=== PATIENT | male | born 1980 | race Caucasian/White ===

== ENCOUNTER 2017-02-16 09:16 | Emergency (ER) | payer BC, OTHER ==
--- NOTE | 2017-02-16 09:27 | UC ---
FLU HPI - History of Current Complaint Stated Complaint: FLU COMPLAINT Time Seen by Provider: 02/16/17 09:27 - Allergy/Home Medications Allergies/Adverse Reactions: Allergies Allergy/AdvReac Type Severity Reaction Status Date / Time Amoxicillin [From Augmentin] Allergy Intermediate GI Upset Verified 05/14/16 10: 18 Clavulanic Acid Allergy Intermediate GI Upset Verified 05/14/16 10:18 [From Augmentin] Penicillins Allergy Intermediate Hives Verified 05/14/16 10:18 PMH/Surg Hx/FS Hx/Imm Hx - Surgical History Surgical History: Yes Surgery Procedure, Year, and Place: HERNIA REPAIR, TONSILECTOMY - Social History Alcohol Use: Occasionally Alcohol Amount: 6 beers/week Substance Use Type: None Substance Use Comment - Amount & Last Used: Occ Smoking Status (MU): Never Smoked Tobacco Amount Used/How Often: 1 can/week - Immunization History Most Recent Influenza Vaccination: unknown Most Recent Tetanus Shot: unknown Most Recent Pneumonia Vaccination: unknown Discharge - Discharge Plan Condition: Stable Disposition: HOME Referrals: Bharat Millan NP [Primary Care Provider] -
[2017-02-16] MEDS ORDERED: Albuterol 2.5 MG/3 ML NEB.SOL* (0.083%) INH ONE (09:47)
[2017-02-16] MEDS ORDERED: Acetaminophen TAB* 325 MG PO ONE (09:54)
--- NOTE | 2017-02-16 10:01 | UC ---
FLU HPI - HPI Summary HPI Summary: Patient presents with four day onset complaints of generalized fatigue, malaise , fever, headache, with cough, chest congestion and chest pressure. He denies any sputum production. He also reports previous episodes of diarrhea. He denies abdominal pain, nausea, or vomiting. He reports ill contacts at work. - History of Current Complaint Chief Complaint: UCGeneralIllness Stated Complaint: FLU COMPLAINT Time Seen by Provider: 02/16/17 09:27 Hx Obtained From: Patient Onset/Duration: Gradual Onset, Lasting Days Associated Signs & Symptoms: Positive: Myalgia, Cough, Headache - Risk Factors Influenza Risk Factors: Negative - Allergy/Home Medications Allergies/Adverse Reactions: Allergies Allergy/AdvReac Type Severity Reaction Status Date / Time Amoxicillin [From Augmentin] Allergy Intermediate GI Upset Verified 02/16/17 09: 27 Clavulanic Acid Allergy Intermediate GI Upset Verified 02/16/17 09:27 [From Augmentin] Penicillins Allergy Intermediate Hives Verified 02/16/17 09:27 Home Medications: Home Medications Acetaminophen TAB* [Tylenol TAB*] 650 mg PO Q4H PRN 02/16/17 [History Confirmed 02/16/17] PMH/Surg Hx/FS Hx/Imm Hx Previously Healthy: Yes - Surgical History Surgical History: Yes Surgery Procedure, Year, and Place: HERNIA REPAIR, TONSILECTOMY - Social History Occupation: Employed Full-time Lives: Alone Alcohol Use: Rare Alcohol Amount: 6 beers/week Substance Use Type: None Substance Use Comment - Amount & Last Used: Occ Smoking Status (MU): Light Every Day Tobacco Smoker Amount Used/How Often: 1 can/week - Immunization History Most Recent Influenza Vaccination: unknown Most Recent Tetanus Shot: unknown Most Recent Pneumonia Vaccination: unknown Review of Systems Constitutional: Fever, Fatigue Skin: Negative Eyes: Negative ENT: Negative Respiratory: Cough Cardiovascular: Chest Pain Gastrointestinal: Negative Genitourinary: Negative Motor: Negative Neurovascular: Negative Musculoskeletal: Negative Neurological: Negative Psychological: Negative Is Patient Immunocompromised?: No All Other Systems Reviewed And Are Negative: Yes Physical Exam Triage Information Reviewed: Yes Appearance: Ill-Appearing Vital Signs: Initial Vital Signs Temp 101.1 F 02/16/17 09:31 Pulse 104 02/16/17 09:31 Resp 20 02/16/17 09:31 BP 115/78 02/16/17 09:31 Pulse Ox 94 02/16/17 09:31 Vital Signs Reviewed: Yes Eye Exam: Normal ENT: Positive: Pharyngeal erythema Dental Exam: Normal Neck exam: Normal Neck: Positive: 1 Respiratory: Positive: Decreased breath sounds Cardiovascular: Positive: RRR, No Murmur, Tachycardia Abdominal Exam: Normal Skin Exam: Normal Flu Course/Dx - Course Course Of Treatment: Patient presetns with complaints of fever, headache, and chest pain. Today we obtained a CXR that was negative, influenza negative, and EKG was read as sinus tachycardia, he received a neb treatment of albuterol and it did not alleviate or improve his chest discomfort. I discussed with him my concerns for viral endocariditis, and pericarditis. He declined ambulance transfer, and I recommend that he go to the ER for serial troponins, and if indicated a cardic consult. He verbalized understanding of and in agreement with the discharge plan. - Differential Dx/Diagnosis Differential Diagnosis/HQI/PQRI: Other - chest pain fever headache viral syndrome Provider Diagnoses: chest pain. fever. headache. viral syndrome. ' Discharge - Discharge Plan Condition: Stable Disposition: OTHER Discharge Disposition Comment: I told the patient to go to the ER at once. Patient Education Materials: Chest Pain (ED) Forms: *Work Release Referrals: Bharat Millan NP [Primary Care Provider] - Additional Instructions: I recommend that the patient go directly to the ER for serial troponins. Patient declined ambulance transfer.
--- NOTE | 2017-02-16 10:35 | RAD ---
INDICATION: Cough COMPARISON: No prior chest x-rays available at this time TECHNIQUE: PA and lateral views of the chest were obtained. FINDINGS: The heart and mediastinum are normal in size and contour. There is questionable faint infiltration at the lateral right lower lung. The remaining lungs are well-aerated. There is no evidence of large pleural effusion. Visualized bones are normal for the patient's age. There is no radiographic evidence of free air beneath the diaphragm IMPRESSION: QUESTIONABLE PATCHY INFILTRATE AT THE LOWER RIGHT LUNG COULD REPRESENT PNEUMONIA IN THE CORRECT CLINICAL SETTING.
[2017-02-16 10:49] VITALS: BP 105/68
== END 2017-02-16 10:46 ==
LOC: UCEAST 09:16
DX: B34.9 Viral infection, unspecified (principal); R07.9 Chest pain, unspecified; R50.9 Fever, unspecified; R51 Headache; F17.290 Nicotine dependence, other tobacco product, uncomplicated; Z88.0 Allergy status to penicillin; Z88.1 Allergy status to other antibiotic agents
CPT/HCPCS: 71020; 87502; 93005; 99212; A9270-GY; G0463

== ENCOUNTER 2017-02-16 11:11 | Emergency (ER) | payer BC ==
[2017-02-16] MEDS ORDERED: Levofloxacin 750 MG IVPREMIX(* 750 MG/150 ML BAG IVPB ONE (11:56)
[2017-02-16] MEDS ORDERED: NS 0.9% 1000 ML* 1,000 ML IV ONE (11:56)
[2017-02-16 12:10] LABS: ABS Basophils 0 10^3/ul (0-0.2); ABS Eosinophils 0 10^3/ul (0-0.6); ABS Lymphocytes 0.6 10^3/ul (1.0-4.8); ABS Monocytes 0.4 10^3/ul (0-0.8); ABS Neutrophils 3.7 10^3/ul (1.5-7.7); ABS Nucleated RBC 0 10^3/ul; Eosinophil % 0.5 % (0-6); Hematocrit 44 % (42-52); Lymphocyte % 12.6 % (25-47); Mean Corpuscular HGB Conc 34 g/dl (31-36); Mean Corpuscular Hemoglobin 31 pg (27-31); Mean Corpuscular Volume 91 fL (80-94); Mean Platelet Volume 9 um3 (7.4-10.4); Nucleated Red Blood Cells % 0.1; Platelet Count 127 10^3/ul (150-450); Red Cell Distribution Width 13 % (10.5-15); White Blood Count 4.7 10^3/ul (3.5-10.8)
[2017-02-16 12:21] LABS: INR 1.06 (0.77-1.02)
[2017-02-16 13:54] VITALS: BP 124/76
--- NOTE | 2017-02-16 16:34 | ED ---
Lacie Perales Julia, scribed for Bubba Waterman MD on 02/16/17 at 1152 . Complex/Multi-Sys Presentation - HPI Summary HPI Summary: This patient is a 36 year old M presenting to [facility] with a chief complaint of intermittent fever and generalized body aches since 02/14/17. The patient rates the pain 7/10 in severity. Symptoms aggravated by nothing. Symptoms alleviated by nothing. Patient reports posterior neck pain, fever, headache, body aches, watery diarrhea (twice today), chest tightness with breathing, and general weakness.Patient denies sputum producing cough. Patient states symptoms are similar to previous PNA. - History Of Current Complaint Chief Complaint: EDGeneral Time Seen by Provider: 02/16/17 11:33 Hx Obtained From: Patient Onset/Duration: Lasting Days Timing: Intermittent, Lasting: Severity Currently: Moderate Aggravating Factor(s): nothing Alleviating Factor(s): nothing Associated Signs And Symptoms: Positive: Other - posterior neck pain, fever, headache, body aches, watery diarrhea (twice today), chest tightness with breathing, and general weakness Related History: Other - symptoms are similar to previous PNA - Allergies/Home Medications Allergies/Adverse Reactions: Allergies Allergy/AdvReac Type Severity Reaction Status Date / Time Amoxicillin [From Augmentin] Allergy Intermediate GI Upset Verified 02/16/17 09: 27 Clavulanic Acid Allergy Intermediate GI Upset Verified 02/16/17 09:27 [From Augmentin] Penicillins Allergy Intermediate Hives Verified 02/16/17 09:27 PMH/Surg Hx/FS Hx/Imm Hx Endocrine/Hematology History: Denies: Hx Diabetes Cardiovascular History: Denies: Hx Hypertension, Hx Pacemaker/ICD, Other Cardiovascular Problems/ Disorders Musculoskeletal History: Reports: Hx Back Problems Sensory History: Denies: Hx Hearing Aid Neurological History: Reports: Other Neuro Impairments/Disorders - PAIN CLINIC PATIENT Psychiatric History: Reports: Hx Anxiety, Hx Depression, Hx Panic Disorder, Hx Community Mental Health Tx Denies: Hx Eating Disorder, Hx of Violent Episodes Against Others - Surgical History Surgery Procedure, Year, and Place: HERNIA REPAIR, TONSILECTOMY Infectious Disease History: No Infectious Disease History: Denies: Traveled Outside the [place] in Last 30 Days - Family History Known Family History: Positive: Cardiac Disease, Diabetes, Other - cancer - Social History Alcohol Use: Rare Alcohol Amount: 6 beers/week Hx Substance Use: No Substance Use Type: Reports: None Substance Use Comment - Amount & Last Used: Occ Hx Tobacco Use: Yes Smoking Status (MU): Light Every Day Tobacco Smoker Amount Used/How Often: 1 can/week Review of Systems Positive: Fever, Fatigue Positive: Other - chest tightness with breathing. Negative: Cough Positive: Diarrhea Positive: Other - posterior neck pain body aches Positive: Headache, Weakness All Other Systems Reviewed And Are Negative: Yes Physical Exam - Summary Physical Exam Summary: Appearance: The patient is well-nourished in no acute distress and in no acute pain. Skin: The skin warm to touch and skin color reflects adequate perfusion. The patient is diaphoretic. HEENT: The head is normocephalic and atraumatic. The pupils are equal and reactive. The conjunctivae are clear and without drainage. Nares are patent and without drainage. Mouth reveals moist mucous membranes and the throat is without erythema and exudate. The external ears are intact. The ear canals are patent and without drainage. The tympanic membranes are intact. Neck: the neck is supple with full range of motion and non-tender. There are no carotid bruits. There is no neck vein distension. Respiratory: Chest is non-tender. Lungs are clear to auscultation and breath sounds are symmetrical and equal. Cardiovascular: Heart is regular rate and rhythm. There is no murmur or rub auscultated. There is no peripheral edema and pulses are symmetrical and equal. Abdomen: The abdomen is soft and non-tender. There are normal bowel sounds heard in all four quadrants and there is no organomegaly palpated. Musculoskeletal: There is no back tenderness noted. Extremities are non-tender with full range of motion. There is good capillary refill. There is no peripheral edema or calf tenderness elicited. Neurological: Patient is alert and oriented to person, place and time. The patient has symmetrical motor strength in all four extremities. Cranial nerves are grossly intact. Deep tendon reflexes are symmetrical and equal in all four extremities. Psychiatric: The patient has an appropriate affect and does not exhibit any anxiety or depression. Triage Information Reviewed: Yes Vital Signs On Initial Exam: Initial Vitals Temp Pulse Resp BP Pulse Ox 99.4 F 91 16 119/73 97 02/16/17 11:16 02/16/17 11:16 02/16/17 11:16 02/16/17 11:16 02/16/17 11:16 Vital Signs Reviewed: Yes Diagnostics - Vital Signs Vital Signs Temp Pulse Resp BP Pulse Ox 02/16/17 11:16 99.4 F 91 16 119/73 97 - Laboratory Lab Results: Lab Results 02/16/17 02/16/17 02/16/17 Range/Units 11:57 11:57 11:57 WBC 4.7 (3.5-10.8) 10^3/ul RBC 4.80 (4.0-5.4) 10^6/ul Hgb 15.0 (14.0-18.0) g/dl Hct 44 (42-52) % MCV 91 (80-94) fL MCH 31 (27-31) pg MCHC 34 (31-36) g/dl RDW 13 (10.5-15) % Plt Count 127 L (150-450) 10^3/ul MPV 9 (7.4-10.4) um3 Neut % (Auto) 78.4 (38-83) % Lymph % (Auto) 12.6 L (25-47) % Haskell % (Auto) 7.9 (1-9) % Eos % (Auto) 0.5 (0-6) % Baso % (Auto) 0.6 (0-2) % Absolute Neuts (auto) 3.7 (1.5-7.7) 10^3/ul Absolute Lymphs (auto) 0.6 L (1.0-4.8) 10^3/ul Absolute Monos (auto) 0.4 (0-0.8) 10^3/ul Absolute Eos (auto) 0 (0-0.6) 10^3/ul Absolute Basos (auto) 0 (0-0.2) 10^3/ul Absolute Nucleated RBC 0 10^3/ul Nucleated RBC % 0.1 INR (Anticoag Therapy) 1.06 H (0.77-1.02) Sodium 134 (133-145) mmol/L Potassium 3.9 (3.5-5.0) mmol/L Chloride 103 (101-111) mmol/L Carbon Dioxide 26 (22-32) mmol/L Anion Gap 5 (2-11) mmol/L BUN 12 (6-24) mg/dL Creatinine 1.13 (0.67-1.17) mg/dL Est GFR ( Amer) 93.9 (>60) Est GFR (Non-Af Amer) 73.0 (>60) BUN/Creatinine Ratio 10.6 (8-20) Glucose 108 H (70-100) mg/dL Lactic Acid (0.5-2.0) mmol/L Calcium 9.0 (8.6-10.3) mg/dL Total Bilirubin 0.40 (0.2-1.0) mg/dL AST 24 (13-39) U/L ALT 23 (7-52) U/L Alkaline Phosphatase 40 (34-104) U/L Troponin I 0.00 (<0.04) ng/mL Total Protein 6.5 (6.4-8.9) g/dL Albumin 3.9 (3.2-5.2) g/dL Globulin 2.6 (2-4) g/dL Albumin/Globulin Ratio 1.5 (1-3) 02/16/ Range/Units 11:57 WBC (3.5-10.8) 10^3/ul RBC (4.0-5.4) 10^6/ul Hgb (14.0-18.0) g/dl Hct (42-52) % MCV (80-94) fL MCH (27-31) pg MCHC (31-36) g/dl RDW (10.5-15) % Plt Count (150-450) 10^3/ul MPV (7.4-10.4) um3 Neut % (Auto) (38-83) % Lymph % (Auto) (25-47) % Haskell % (Auto) (1-9) % Eos % (Auto) (0-6) % Baso % (Auto) (0-2) % Absolute Neuts (auto) (1.5-7.7) 10^3/ul Absolute Lymphs (auto) (1.0-4.8) 10^3/ul Absolute Monos (auto) (0-0.8) 10^3/ul Absolute Eos (auto) (0-0.6) 10^3/ul Absolute Basos (auto) (0-0.2) 10^3/ul Absolute Nucleated RBC 10^3/ul Nucleated RBC % INR (Anticoag Therapy) (0.77-1.02) Sodium (133-145) mmol/L Potassium (3.5-5.0) mmol/L Chloride (101-111) mmol/L Carbon Dioxide (22-32) mmol/L Anion Gap (2-11) mmol/L BUN (6-24) mg/dL Creatinine (0.67-1.17) mg/dL Est GFR ( Amer) (>60) Est GFR (Non-Af Amer) (>60) BUN/Creatinine Ratio (8-20) Glucose (70-100) mg/dL Lactic Acid 0.7 (0.5-2.0) mmol/L Calcium (8.6-10.3) mg/dL Total Bilirubin (0.2-1.0) mg/dL AST (13-39) U/L ALT (7-52) U/L Alkaline Phosphatase (34-104) U/L Troponin I (<0.04) ng/mL Total Protein (6.4-8.9) g/dL Albumin (3.2-5.2) g/dL Globulin (2-4) g/dL Albumin/Globulin Ratio (1-3) Result Diagrams: 02/16/17 11:57 02/16/17 11:57 Lab Statement: Any lab studies that have been ordered have been reviewed, and results considered in the medical decision making process. - EKG 11:24 Cardiac Rate: NL EKG Rhythm: Sinus Rhythm - at 97 BPM Complex Multi-Symp Course/Dx Course Of Treatment: Mr. Thompson was seen at [facility] earlier today and diagnosed with pneumonia. He is not currently on antibiotics and comes in C/O of the same symptoms. He was hydrated while labs were being checked and given IV antibiotics. He felt a lot better and was D/C'd with antibiotics and F/U. - Diagnoses Provider Diagnoses: PNA (pneumonia) Discharge - Discharge Plan Condition: Stable Disposition: HOME Prescriptions: Clarithromycin TAB* [Biaxin TAB*] 500 mg PO BID #20 tab Patient Education Materials: Pneumonitis (ED) Forms: *Work Release Referrals: Bharat Millan [employer] [Primary Care Provider] - Additional Instructions: RETURN TO THE EMERGENCY DEPARTMENT FOR CHANGING OR WORSENING SYMPTOMS The documentation as recorded by the Lacie daley Julia accurately reflects the service I personally performed and the decisions made by me, Bubba Waterman MD.
== END 2017-02-16 13:53 | disposition home or self-care (01) ==
LOC: ED 11:11
DX: J18.9 Pneumonia, unspecified organism (principal); M54.2 Cervicalgia; R50.9 Fever, unspecified; R51 Headache; R19.7 Diarrhea, unspecified; R53.83 Other fatigue; F17.210 Nicotine dependence, cigarettes, uncomplicated
CPT/HCPCS: 36415; 80053; 83605; 84484; 85025; 85610; 86803; 87040; 93005; 96360; 99282

== ENCOUNTER 2017-09-07 14:53 | Emergency (ER) | payer BC ==
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
[2017-09-07] MEDS ORDERED: NS 0.9% 1000 ML* 1,000 ML IV ONE (16:01)
[2017-09-07] MEDS ORDERED: Morphine VIAL* 4 MG/ML VIAL (1 ml vial) IV ONE (16:01)
[2017-09-07] MEDS ORDERED: Ketorolac INJ* 30 MG/ML 1 ML VIAL IV PUSH ONE (16:02)
[2017-09-07 16:45] LABS: ABS Basophils 0.1 10^3/ul (0-0.2); ABS Eosinophils 0.1 10^3/ul (0-0.6); ABS Lymphocytes 1.5 10^3/ul (1.0-4.8); ABS Monocytes 0.7 10^3/ul (0-0.8); ABS Neutrophils 7.2 10^3/ul (1.5-7.7); ABS Nucleated RBC 0 10^3/ul; Eosinophil % 0.7 % (0-6); Hematocrit 43 % (42-52); Hemoglobin 14.6 g/dl (14.0-18.0); Lymphocyte % 15.9 % (25-47); Mean Corpuscular HGB Conc 34 g/dl (31-36); Mean Corpuscular Hemoglobin 31 pg (27-31); Mean Corpuscular Volume 93 fL (80-94); Mean Platelet Volume 8.8 um3 (7.4-10.4); Nucleated Red Blood Cells % 0; Platelet Count 159 10^3/ul (150-450); Red Blood Count 4.65 10^6/ul (4.00-5.40); Red Cell Distribution Width 14 % (10.5-15); White Blood Count 9.5 10^3/ul (3.5-10.8)
[2017-09-07 17:01] LABS: EGFR Non-African American 79.5 (>60)
[2017-09-07 18:57] VITALS: BP 134/89
== END 2017-09-07 18:30 | disposition home or self-care (01) ==
LOC: ED 14:53
DX: L55.9 Sunburn, unspecified (principal); F17.200 Nicotine dependence, unspecified, uncomplicated; Z88.0 Allergy status to penicillin; Z88.3 Allergy status to other anti-infective agents
CPT/HCPCS: 36415; 80053; 85025; 86140; 96361; 96374; 99283; J1885; J2270

== ENCOUNTER → 2018-12-07 05:38 | Day surgery (SDC) | payer OTHER ==
--- NOTE | 2018-12-04 14:53 | HP ---
CC: Dr. Peoples; Bharat Millan NP* DATE OF ADMISSION: 12/07/2018. This patient is scheduled for Same Day Surgery admission by Dr. Peoples. DATE OF PREOPERATIVE HISTORY AND PHYSICAL EXAMINATION: Tuesday, December 04, 2018. ATTENDING PHYSICIAN: Dr. Eric Peoples* (dictated by Estefany Morales NP). CHIEF COMPLAINT: Right inguinal hernia. HISTORY OF PRESENT ILLNESS: The patient is a 38-year-old male, recently evaluated by Dr. Peoples for a right inguinal hernia. The patient has known about the right inguinal hernia for many months and it has become slightly larger. He has also noticed a possible left inguinal hernia as well. He denies any signs or symptoms to suggest incarceration or strangulation. He rates the pain at 3/10, sometimes radiating towards the pelvis. He has also noticed a bulge at the umbilicus as well. Dr. Peoples examined the patient and noted a reducible right inguinal hernia, a possible small left inguinal hernia, and a small umbilical hernia. Dr. Peoples discussed the findings with the patient and recommended robotic repair with mesh of the right inguinal hernia and the possibility of umbilical hernia repair and left inguinal hernia repair if noted intraoperatively. Dr. Peoples discussed the nature of the surgery, the rationale for the surgery, the relevant risks and benefits, and today I reviewed the expected postoperative care and recovery. The patient has had a chance to ask questions and stated that he understands the information and is satisfied with the answers given to his questions. He will sign surgical consent on the day of surgery. PAST MEDICAL HISTORY: Back pain. PAST SURGICAL HISTORY: Spigelian hernia repair with mesh in 2005, tonsillectomy 2002. MEDICATIONS: Limited to supplements of zinc, magnesium, and melatonin. ALLERGIES: PENICILLIN AND AUGMENTIN HAVE CAUSED HIVES. FAMILY HISTORY: No known anesthesia complications, bleeding tendencies, or clotting disorders. SOCIAL HISTORY: He is single and lives with his brother and sister. 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 He has never been a smoker. He chews tobacco. He drinks approximately six alcoholic beverages were week. REVIEW OF SYSTEMS: Constitutional: No fevers, chills, excessive fatigue or weight loss. General: No previous anesthesia complications. No history of deep vein thrombosis or pulmonary embolism. He has never received a blood transfusion. No history of MRSA infection. Endocrine: No diabetes or thyroid disease. Hematologic: No easy bruising or bleeding. Respiratory: No dyspnea on exertion. No chronic cough. Cardiovascular: No anginal chest pain or palpitations. Gastrointestinal: No nausea, vomiting, diarrhea, GI bleeding or constipation. No change in bowel habits. No heartburn. Genitourinary: No dysuria. Musculoskeletal: Normal strength and tone. Integumentary: No chronic rashes or skin changes. Neurologic: No headache or blurred vision. No areas of focal weakness or numbness. Psychiatric: No insomnia or depression. PHYSICAL EXAMINATION GENERAL: The patient is a 38-year-old male, well-developed, well-nourished, in no acute distress. VITAL SIGNS: Height 70 inches, weight 195 pounds, body mass index 28. Blood pressure 116/70, pulse 64 and regular, respiratory rate 16, temperature 97.3 tympanic. SKIN: Warm, dry, intact. HEENT: Benign. NECK: Supple. No cervical lymphadenopathy. LUNGS: Breath sounds bilaterally clear and equal. HEART: Regular rate and rhythm. No murmurs or rubs appreciated. BACK: No CVA tenderness. ABDOMEN: Obese, soft, nondistended, nontender throughout. There is an obvious small umbilical hernia reducible. No other abdominal masses or organomegaly. Dr. Peoples examined the inguinal region and there is a reducible right inguinal hernia and a possible small left inguinal hernia. Normal external genitalia. EXTREMITIES: Warm without edema or skin ulceration. RECTAL: Exam deferred. NEUROLOGIC: Alert and oriented times three, steady gait. IMPRESSION: Right inguinal hernia, possible left inguinal hernia, umbilical hernia. PLAN: Same Day Surgery admission to Dr. Peoples's service on 12/07/2018 for robotic repair of right inguinal hernia with mesh, possible repair of left inguinal hernia with mesh and possible umbilical hernia repair. WALLY MORALES NP [id number]/[facility] #: [id number] LEAH
[~2018-12-07 05:38] MED LIST: Buffered Lidocaine 1% SYRIN* 1 ML/SYRINGE INTRADERM ONE; Bupivacaine 0.5%* 50 ML MDV VIAL ONE; Clindamycin 900 MG/D5W BAG(*) 900 MG/50 ML BAG IVPB ONE; Dexamethasone IV* 4 MG/ML 1 ML (4 MG) ONE; Famotidine IV* 10 MG/ML 2 ML (20 mg) IV ONE; Famotidine IV* 10 MG/ML 2 ML (20 mg) ONE; Ketorolac INJ* 30 MG/ML 1 ML VIAL ONE; Lactated Ringers 1000 ML Bag* 1,000 ML IV SCH; Lidocaine 2% PF * 5 ML VIAL ONE; Midazolam* 1 MG/ML 5 ML VIAL (5 MG) ONE; Naloxone* 0.4 MG/ML 1 ML VIAL IV PRN; Ondansetron INJ* 2 MG/ML VIAL IV PRN; Ondansetron INJ* 2 MG/ML VIAL ONE; Propofol* 10 MG/ML 20 ML BTL ONE; Rocuronium* 10 MG/ML VIAL ONE; Sugammadex * 200 MG/2 ML VIAL IV PUSH ONE; fentaNYL* 50 MCG/ML 2 ML VIAL (100 MCG VIAL) ONE; oxyCODONE/Acetamin 5/325 MG* TAB ONE
[2018-12-07] MEDS: oxyCODONE/Acetamin 5/325 MG* TAB PO PRN ×2 (09:12→09:13)
[2018-12-07] MEDS: fentaNYL* 50 MCG/ML 2 ML VIAL (100 MCG VIAL) IV PRN ×2 (09:13→09:42)
--- NOTE | 2018-12-07 10:12 | OP ---
CC: Dr. Peoples; Bharat Millan NP OPERATIVE REPORT: DATE OF OPERATION: 12/07/18 DATE OF : 78 SURGEON: Eric Peoples MD GENERAL ASSIGNMENT REPORTER: LORENA Adams PRE-OP DIAGNOSIS: Right inguinal hernia, possible left, umbilical hernia. POST-OP DIAGNOSIS: Right inguinal hernia, no obvious left inguinal hernia, umbilical hernia. OPERATIVE PROCEDURE: Robotic repair of right inguinal hernia with mesh, repair of umbilical hernia. INDICATIONS: Right inguinal hernia, umbilical hernia. Risks of surgery included but not limited to bleeding, infection, injury to intraabdominal contents including the bowel, pelvic nerves and vessels , persistent pain, recurrence of the hernia explained to the patient, who seemed to understand and ag braydon to the procedure and all questions were answered. DESCRIPTION OF PROCEDURE: The patient was taken to the operating room, placed supine. Preoperative antibiotics were given. After the successful induction of general endotracheal anesthesia, the abdom en was prepped and draped in a sterile fashion. A time-out was performed indicating the correct rusty ent, correct procedure. A left upper quadrant 5 mm trocar was placed under direct visualization of t he camera. Using a bladeless Optiview trocar, pneumoperitoneum was achieved with 12 mmHg. Camera wa s placed in the abdomen and the abdomen was scanned. There was no obvious injury from trocar placeme nt. An 8 mm trocar was placed in the upper midline and in the right upper quadrant respectively unde r direct visualization of the camera and then an 8 mm trocar replaced the 5 mm trocar. The patient w as in the slight Trendelenburg position. The robot was brought in and docked. There were adhesions of the sigmoid colon to the left hemipelvis and these were gently taken down to expose the area in th e left inguinal canal which did not appear to have an inguinal hernia. There was obvious right ingui nal hernia. The peritoneum was taken out in the right hemipelvis and the sac was gently dissected fr ee from the cord. Cord structures were identified and avoided. A ProGrip right- sided mesh was brou ght into the pelvis and placed over the right pelvis covering the femoral direct and indirect spaces. The peritoneum was closed with a running V- Lock suture. The peritoneum was then opened at the umb ilicus exposing the small umbilical hernia. This was closed with a running 0 PDS STRATAFIX suture. The peritoneum was closed with the same suture burying the suture so it was not exposed and closing t he peritoneum in a horizontal mattress to burry the suture. Both needles were removed manually from the abdomen. The abdomen was scanned and there was no obvious injuries noted. The patient was undoc ked from the robot and the instruments were removed. He was then taken out of the Trendelenburg posi tion. The trocars were removed. The skin was closed with Monocryl and glue. He tolerated the proced ure. He was extubated. EBL was minimal. He was taken to Recovery in stable condition. [id number]/[facility] #: [id number]
[2018-12-07 11:34] VITALS: BP 122/78
== END | disposition home or self-care (01) ==
LOC: OR 05:38
PROVIDERS: ATTEND Surgery
DX: K40.90 Unilateral inguinal hernia, without obstruction or gangrene, not specified as recurrent (principal); K42.9 Umbilical hernia without obstruction or gangrene; G47.33 Obstructive sleep apnea (adult) (pediatric); Z72.0 Tobacco use; F43.10 Post-traumatic stress disorder, unspecified; F32.9 Major depressive disorder, single episode, unspecified
CPT/HCPCS: 49585; 49650; S2900; A9270-GY; C1781; J1100; J1885; J2250; J2405; J2704; J3010; J3490

== ENCOUNTER 2019-01-09 09:38 | Emergency (ER) | payer OTHER ==
[2019-01-09 09:47] VITALS: BP 123/83
--- OUTSIDE RECORDS SUMMARY | 2019-01-09 09:49 | XMS REPORT | Continuity of Care Document ---
:1980 External Reference #:[id number] Author Name Eric Peoples MD (transmitted by agent of provider Mary Domínguez) Address [facility] [place] [address] Care Team Providers Name Role Phone Bharat Millan NP - Family Care Team Information Medical Scribe [phone] Bharat Millan NP - Family Care Team Information Medical Scribe [phone] Problems Active Problems Provider Date Sprain of medial collateral ligament of knee Makeda Vang MD Onset: 2014 Social History Type Date Description Comments Sex Unknown ETOH Use Currently consumes 6 drinks per week alcohol Tobacco Use Start: Unknown Patient has never smoked chews tobacco Smoking Status Reviewed: 12/15/18 Patient has never smoked chews tobacco Exercise Exercises regularly Type/Frequency Allergies, Adverse Reactions, Alerts Active Allergies Reaction Severity Comments Date Penicillin hives 12/20/2013 Medications Active Medications SIG Qnty Indications Ordering Provider Date Ibuprofen 200 600mg every 6 60tabs Estefany Morel 12/04/2018 200mg hrs prn pain Eckenrode, INSURANCE CLAIMS ASSISTANT Tablets Zinc 50 MG daily Unknown Magnesium 450 mg daily Unknown Melatonin 1 cap at bedtime Unknown 5mg Capsules Kratom Powder as needed for Unknown pain History Medications Oxycodone-Acetaminophen 1 tab by 10tabs Estefany Morel 12/04/2018 - 5-325mg Tablets mouth every 4 Eckenrode, INSURANCE CLAIMS ASSISTANT Unknown hours as needed Medications Administered in Office Medication SIG Qnty Indications Ordering Provider Date Depomedrol 80MG Timmy Ownes M.D. 08/25/2014 Injection Depomedrol 80MG Timmy Owens M.D. 12/20/2013 Injection Immunizations Description No Information Available Vital Signs Date Vital Result Comment 12/15/2018 9:13am Heart Rate 72 /min BP Systolic Sitting 124 mmHg BP Diastolic Sitting 70 mmHg Respiratory Rate 12 /min Body Temperature 98.3 F 12/04/2018 1:02pm Heart Rate 64 /min BP Systolic 116 mmHg BP Diastolic 70 mmHg Respiratory Rate 16 /min Body Temperature 97.3 F Results Description No Information Available Procedures Date Code Description Status 12/07/2018 46145 Laps Repair Hernia Except Incal/Ingun Reducible Completed 12/07/2018 43657 Laparoscopy, Surgical Repair Initial Inguinal Hernia Completed Medical Devices Description No Information Available Encounters Type Date Location Provider Dx Diagnosis Office Visit 10[facility]2018 [facility] K40.90 Unil inguinal 2:30p Of Evelia Peoples MD hernia, w/o obst or gangr, not spcf as recur Office Visit 08/27/2018 [facility] K40.90 Unil inguinal 2:15p Of Evelia Peoples MD hernia, w/o obst or gangr, not spcf as recur Assessments Date Code Description Provider 12/15/2018 K40.90 Unilateral inguinal hernia, without Eric Peoples MD obstruction or gangrene, 12/07/2018 K40.90 Unilateral inguinal hernia, without Eric Peoples MD obstruction or gangrene, 12/07/2018 K42.9 Umbilical hernia without obstruction or Eric Peoples MD gangrene 12/04/2018 K40.90 Unilateral inguinal hernia, without Estefany Myers NP obstruction or gangrene, 12/04/2018 Z01.818 Encounter for other preprocedural Estefany Myers INSURANCE CLAIMS ASSISTANT examination 12/02/2018 K40.90 Unilateral inguinal hernia, without Eric Peoples MD obstruction or gangrene, 10/29/2018 K40.90 Unilateral inguinal hernia, without Eric Peoples MD obstruction or gangrene, 08/27/2018 K40.90 Unilateral inguinal hernia, without Eric Peoples MD obstruction or gangrene, Plan of Treatment 12/15/2018 - Eric Peoples MDK40.90 Unilateral inguinal hernia, without obstruction or gangrene,Comments:Healing well return to work Friday Functional Status Description No Information Available Mental Status Description No Information Available Referrals Description No Information Available
--- OUTSIDE RECORDS SUMMARY | 2019-01-09 09:49 | XMS REPORT | Continuity of Care Document ---
:1980 External Reference #:[id number] Author Name Bharat Millan N.P. Address [address] [place] [address] Problems Active Problems Provider Date Depressive disorder Bharat Millan N.P. Onset: 05/23/2014 Anxiety Bharat Millan N.P. Onset: 05/23/2014 Low back pain Bharat Millan N.P. Onset: 12/01/2015 Social History Type Date Description Comments Sex Unknown Smokeless Tobacco Current Smokeless Tobacco User, Uses 6 Times Daily Tobacco Use Start: Unknown Patient has never smoked Allergies, Adverse Reactions, Alerts Active Allergies Reaction Severity Comments Date Penicillin 01/21/2014 Keflex Nausea and Vomiting 01/21/2014 Medications Active Medications SIG Qnty Indications Ordering Provider Date Sulfamethoxazole/Trim 1 by mouth twice 20tabs Bharat Millan, 2018 ethoprim DS a day N.P. 800-160mg Tablets Proair HFA 2 puffs four 1can Bharat Millan, 01/23/2018 108(90Base) times a day as N.P. mcg/Act Aerosol needed Ibuprofen 1 by mouth four 30tabs Bharat Millan, 09/12/2017 800mg Tablets times a day with N.P. food Mirtazapine take one tablet 30tabs Bharat Millan, 08/11/2016 15mg by mouth at N.P. Tablets bedtime Zinc 1 po qhs Bharat Millan, 03/11/2014 50mg Tablets N.P. Vitamin C 1 po bid Bharat Millan, 03/11/2014 500mg Tablets N.P. Vitamin B-12 Bharat Millan, 03/11/2014 5000mcg N.P. Tablets Sub Creatine Bharat Millan, 03/11/2014 Powder N.P. Alprazolam 1 by mouth three 90tabs Bharat Millan, 03/11/2014 1mg Tablets times a day N.P. Medications Administered in Office Medication SIG Qnty Indications Ordering Provider Date Torodol Injection 15 MG Dose Bharat Millan, N.PBradyen 12/01/2015 Injection Immunizations CPT Code Status Date Vaccine Lot # [id number] Given 10/21/2014 Fluzone Trivalent Immunization [id number] Given 10/21/2014 Influenza Vac, Quadrivalent, Split, 0.5mL Dosage, Im Use [id number] Given 10/21/2014 Afluria Or Fluvirin Flu Vac Intramuscular 76688 Given 12/24/2013 Tdap (Adacel) Ages 7 And Above Only [id number] Refused 12/24/2018 Influenza Vac, Quadrivalent, Split, 0.5mL Dosage, Im Use [id number] Refused 12/05/2017 Influenza Vac, Quadrivalent, Split, 0.5mL Dosage, Im Use [id number] Refused 03/04/2017 Influenza Vac, Quadrivalent, Split, 0.5mL Dosage, Im Use Vital Signs Date Vital Result Comment 12/24/2018 2:43pm Body Temperature 99.0 F Weight 201.50 lb Heart Rate 83 /min BP Systolic 124 mmHg BP Diastolic 74 mmHg O2 % BldC Oximetry 96 % 08/03/2018 2:17pm Body Temperature 98.8 F Weight 208.50 lb Heart Rate 71 /min BP Systolic 122 mmHg BP Diastolic 80 mmHg O2 % BldC Oximetry 94 % Results Description No Information Available Procedures Description No Information Available Medical Devices Description No Information Available Encounters Type Date Location Provider Dx Diagnosis Office Visit 08/03/2018 Bharat Sousa, K59.00 Constipation, 2:30p N.P. unspecified R10.9 Unspecified abdominal pain Assessments Date Code Description Provider 12/24/2018 Z28.21 Immunization not carried out because of Bharat Millan, N.Jeff. patient refusal 12/24/2018 L03.011 Cellulitis of RIGHT finger Bharat Millan, N.P. 08/03/2018 K59.00 Constipation, unspecified Bharat Millan, N.P. 08/03/2018 R10.9 Unspecified abdominal pain Bharat Millan N.P. Plan of Treatment 12/24/2018 - Bharat Millan N.PBraydenZ28.21 Immunization not carried out because of patient refusalComments:patient counseled about benefits of receiving flu vaccinedeclines at this time for non-specific lytdinF32.011 Cellulitis of RIGHT fingerComments:soak finger in warm soapy water bid and cover with bacitracin dressingstart Bactrim and take as directedreport increasing pain or rednessAllNew Medication:Sulfamethoxazole/Trimethoprim DS 800-160 mg - 1 by mouth twice a day Functional Status Description No Information Available Mental Status Description No Information Available Referrals Refer to Reason for Referral Status Appt Date Shelton Arizmendi, Eric possible hernia R lower abd Closed 08/26/2018 [address] [place] [address] [place] [address] [phone]
--- OUTSIDE RECORDS SUMMARY | 2019-01-09 09:49 | XMS REPORT | Continuity of Care Document ---
:1980 External Reference #:[id number] Author Name Estefany Myers NP (transmitted by agent of provider Greer Elliott) Address [address] [place] [address] Care Team Providers Name Role Phone Bharat Millan NP - Family Care Team Information [place] Upholsterer [phone] Bharat Millan NP - Family Care Team Information [place] Upholsterer [phone] Problems Active Problems Provider Date Sprain of medial collateral ligament of knee Makeda Vang MD Onset: 2014 Social History Type Date Description Comments Sex Unknown ETOH Use Currently consumes 6 drinks per week alcohol Tobacco Use Start: Unknown Patient has never smoked chews tobacco Smoking Status Reviewed: 12/04/18 Patient has never smoked chews tobacco Exercise Exercises regularly Type/Frequency Allergies, Adverse Reactions, Alerts Active Allergies Reaction Severity Comments Date Penicillin hives 12/20/2013 Medications Active Medications SIG Qnty Indications Ordering Provider Date Oxycodone-Acetaminoph 1 tab by mouth 10tabs Estefany Morel 12/04/2018 en every 4 hours as MAGNO Myers 5-325mg Tablets needed Zinc 50 MG daily Unknown Magnesium 450 mg daily Unknown Melatonin 1 cap at bedtime Unknown 5mg Capsules Kratom Powder as needed for Unknown pain Medications Administered in Office Medication SIG Qnty Indications Ordering Provider Date Depomedrol 80MG Timmy Owens M.D. 08/25/2014 Injection Depomedrol 80MG Timmy Owens M.D. 12/20/2013 Injection Immunizations Description No Information Available Vital Signs Date Vital Result Comment 12/04/2018 1:02pm Heart Rate 64 /min BP Systolic 116 mmHg BP Diastolic 70 mmHg Respiratory Rate 16 /min Body Temperature 97.3 F 10/29/2018 2:34pm Height 70 inches 5'10" Weight 195.00 lb Heart Rate 66 /min BP Systolic Sitting 128 mmHg BP Diastolic Sitting 82 mmHg Respiratory Rate 12 /min Body Temperature 97.2 F BMI (Body Mass Index) 28.0 kg/m2 Results Description No Information Available Procedures Description [...] as recur Assessments Date Code Description Provider 12/04/2018 K40.90 Unilateral inguinal hernia, without Estefany Myers NP obstruction or gangrene, 12/04/2018 Z01.818 Encounter for other preprocedural Estefany Myers NP examination 12/02/2018 K40.90 Unilateral inguinal hernia, without Eric Peoples MD obstruction or gangrene, 10/29/2018 K40.90 Unilateral inguinal hernia, without Eric Peoples MD obstruction or gangrene, 08/27/2018 K40.90 Unilateral inguinal hernia, without Eric Peoples MD obstruction or gangrene, Plan of Treatment Future Appointment(s):12/15/2018 9:00 am - [facility]12/04/2018 - Estefany Myers NPK40.90 Unilateral inguinal hernia, without obstruction or gangrene,Comments:patient has a right inguinal hernia,possible left inguinal hernia and umbilical herniaFollow up: postop 12/15/18Z01.818 Encounter for other preprocedural examination Functional Status Description No Information Available Mental Status Description No Information Available Referrals Description No Information Available
--- NOTE | 2019-01-09 10:09 | UC ---
Skin Complaint HPI - HPI Summary HPI Summary: patient had laproscopic surgery 1 month ago---one of the puncture sites right upper abdomen is tender with purlent drainage and erythema--patient has no fever or streaking - History of Current Complaint Chief Complaint: UCSkin Time Seen by Provider: 01/09/19 10:00 Stated Complaint: POSSIBLE INFECTION Hx Obtained From: Patient Onset/Duration: Sudden Onset, Lasting Days, Still Present Timing: Constant Pain Intensity: 1 Pain Scale Used: 0-10 Numeric Location: Discrete Character: Pain, Redness Aggravating Factor(s): Nothing Alleviating Factor(s): Nothing Associated Signs & Symptoms: Positive: Drainage - Allergy/Home Medications Allergies/Adverse Reactions: Allergies Allergy/AdvReac Type Severity Reaction Status Date / Time Penicillins Allergy Severe Hives Verified 01/09/19 09:46 amoxicillin Allergy Intermediate GI Upset Verified 01/09/19 09:46 clavulanic acid Allergy Intermediate GI Upset Verified 01/09/19 09:46 [From Augmentin] PMH/Surg Hx/FS Hx/Imm Hx Previously Healthy: Yes - Surgical History Surgical History: Yes Surgery Procedure, Year, and Place: LEFT HERNIA REPAIR 2007 hernia repair 2018. TONSILLECTOMY 2003 - Family History Known Family History: Positive: Cardiac Disease, Hypertension, Diabetes, Other - cancer Negative: Seizure Disorder - Social History Occupation: Employed Full-time Lives: With Family Alcohol Use: None Alcohol Amount: HAS NOT HAD A DRINK SINCE 10/05 Substance Use Type: Marijuana, Other - kratum Substance Use Comment - Amount & Last Used: DAILY Smoking Status (MU): Former Smoker Type: Cigarettes Amount Used/How Often: LAST CIG FRIDAY-11/29/18 Have You Smoked in the Last Year: Yes - Immunization History Most Recent Influenza Vaccination: unknown Most Recent Tetanus Shot: unknown Most Recent Pneumonia Vaccination: unknown Review of Systems All Other Systems Reviewed And Are Negative: Yes Constitutional: Positive: Negative Skin: Positive: Other - incision site right upper abdomen red scabbed with purulent drainage Eyes: Positive: Negative ENT: Positive: Negative Respiratory: Positive: Negative Cardiovascular: Positive: Negative Gastrointestinal: Positive: Negative Genitourinary: Positive: Negative Motor: Positive: Negative Neurovascular: Positive: Negative Musculoskeletal: Positive: Negative Neurological: Positive: Negative Psychological: Positive: Negative Is Patient Immunocompromised?: No Physical Exam Triage Information Reviewed: Yes Appearance: Well-Appearing, No Pain Distress, Well-Nourished Vital Signs: Initial Vital Signs Temp 99.3 F 01/09/19 09:41 Pulse 75 01/09/19 09:41 Resp 16 01/09/19 09:41 BP 123/83 01/09/19 09:41 Pulse Ox 100 01/09/19 09:41 Vital Signs Reviewed: Yes Eye Exam: Normal Eyes: Positive: Conjunctiva Clear ENT Exam: Normal ENT: Positive: Normal ENT inspection, Hearing grossly normal. Negative: Trismus , Muffled voice, Hoarse voice Dental Exam: Normal Neck exam: Normal Neck: Positive: Supple, Nontender Respiratory Exam: Normal Respiratory: Positive: Chest non-tender, No respiratory distress, No accessory muscle use Cardiovascular Exam: Normal Cardiovascular: Positive: RRR, Pulses Normal, Brisk Capillary Refill Abdominal Exam: Normal Abdomen Description: Positive: Nontender, No Organomegaly, Soft Musculoskeletal Exam: Normal Musculoskeletal: Positive: Strength Intact, ROM Intact, No Edema Neurological Exam: Normal Neurological: Positive: Alert, Muscle Tone Normal Psychological Exam: Normal Skin: Positive: Other - pain induration erythema drainage from PW right upper abdomen Course/Dx - Course Course Of Treatment: culture wound, warm soak/compress clindamycin follow with surgeon prn - Diagnoses Provider Diagnosis: Wound infection after surgery Discharge ED - Sign-Out/Discharge Documenting (check all that apply): Patient Departure All imaging exams completed and their final reports reviewed: No Studies - Discharge Plan Condition: Stable Disposition: HOME Prescriptions: Clindamycin Cap(NF) [Clindamycin Cap 300 mg Cap(NF)] 300 mg PO TID 10 Days #30 cap Patient Education Materials: Wound Infection (ED), Acute Wound Care (ED), Warm Compress or Soak (ED) Referrals: Bharat Millan NP [Primary Care Provider] - If Needed - Billing Disposition and Condition Condition: STABLE Disposition: Home - Attestation Statements Provider Attestation: I was available for consult. This patient was seen by the [facility]. The patient was not presented to , seen by or examined by az -Kameron Mccarthy MD
--- NOTE | 2019-01-12 07:29 | UC ---
- Progress Note Progress Note: PLS CALL PT. CULTURE POSITIVE FOR MRSA RESISTANT TO CLINDA. STOP CLINDA AND START DOXY. SENT TO [facility] IN [place]. FOLLOW-UP PCP. Course/Dx - Diagnoses Provider Diagnoses: Wound infection after surgery Discharge ED - Sign-Out/Discharge Documenting (check all that apply): Post-Discharge Follow Up All imaging exams completed and their final reports reviewed: No Studies - Discharge Plan Condition: Stable Disposition: HOME Prescriptions: Clindamycin Cap(NF) [Clindamycin Cap 300 mg Cap(NF)] 300 mg PO TID 10 Days #30 cap Doxycycline Monohydrate 1 cap PO BID #20 cap Patient Education Materials: Wound Infection (ED), Acute Wound Care (ED), Warm Compress or Soak (ED) Referrals: Bharat Millan NP [Primary Care Provider] - If Needed - Billing Disposition and Condition Condition: STABLE Disposition: Home
== END 2019-01-09 10:15 | disposition home or self-care (01) ==
LOC: UCEAST 09:38
DX: L76.82 Other postprocedural complications of skin and subcutaneous tissue (principal); Z88.0 Allergy status to penicillin; Z88.1 Allergy status to other antibiotic agents; Z87.891 Personal history of nicotine dependence; Y83.8 Other surgical procedures as the cause of abnormal reaction of the patient, or of later complication, without mention of misadventure at the time of the procedure; Y92.9 Unspecified place or not applicable
CPT/HCPCS: 87070; 87077; 87186; 87205; 87640; 87641; 99212; G0463